=== PATIENT | male | born 1990 | race Caucasian/White ===

== ENCOUNTER 2021-08-28 21:29 | Emergency (ER) | payer OTHER ==
[2021-08-28 21:52] VITALS: BP 141/80; PULSE 86; TEMP 98.4; BMI 23.7
[2021-08-29] MEDS ORDERED: ALBUTEROL SO4 2.5/IPRATROPIUM 0.5 INH SOL 3 ML VIAL.NEB. NEB ONE ×2 (01:13→01:17)
[2021-08-29] MEDS ORDERED: DEXAMETHASONE SOD PHOSPHATE 10 MG/1 ML VIAL IM ONE (01:13)
[2021-08-29] MEDS ORDERED: DEXAMETHASONE SOD PHOSPHATE 10 MG/1 ML VIAL ONE (01:17)
== END 2021-08-29 02:30 | disposition home or self-care (01) ==
LOC: JERFT 21:29 → JER 21:29
PROC: 3E023GC Introduction of Other Therapeutic Substance into Muscle, Percutaneous Approach (ICD-10-PCS; principal; 2021-08-28)
PROC: 3E0F7GC Introduction of Other Therapeutic Substance into Respiratory Tract, Via Natural or Artificial Opening (ICD-10-PCS; 2021-08-28)
DX: J40 Bronchitis, not specified as acute or chronic (principal)
CPT/HCPCS: 0241U-QW; 71046-TC-FY; 99284-25; J1100

== ENCOUNTER 2023-12-07 21:42 | Emergency (ER) | payer SELFPAY ==
[2023-12-07 21:55] VITALS: BP 156/61; PULSE 71; RESP 18; TEMP 97.6; BMI 24.4
[2023-12-07] MEDS: ACETAMINOPHEN 1000 MG/100 ML BAG IVPB ONE (22:35)
[2023-12-07] MEDS ORDERED: ACETAMINOPHEN INJECTION 100 ML ONE (22:35)
[2023-12-07 22:54] LABS: BASO % 0.6 % (0-2.0); EOS % 2.4 % (0-4.5); HEMATOCRIT 44.5 % (35.4-49); HEMOGLOBIN 15.1 GM/dL (11.7-16.9); LYMPH % 34.7 % (8-40); MCH 29.7 pg (25.7-33.7); MCHC 33.9 g/dl (32.0-35.9); MEAN CELL VOLUME 87.7 fl (80-96); MEAN PLT VOLUME 7.9 fl (7.5-11.1); MONO % 8.2 % (3.8-10.2); NEUT % 54.1 % (42.8-82.8); PLATELET COUNT 232 10^3/uL (134-434); RBC 5.07 M/mm3 (4.00-5.60); RDW 12.8 % (11.9-15.9)
[2023-12-07 23:11] LABS: POTASSIUM 4.3 mmol/L (3.5-5.1)
[2023-12-07 23:13] LABS: ALBUMIN 4.2 g/dl (3.4-5.0); BLOOD UREA NITROGEN 17.2 mg/dL (7-18); CALCIUM 9.3 mg/dL (8.5-10.1)
[2023-12-07 23:17] LABS: BILIRUBIN,TOTAL 1.2 mg/dL (0.2-1); CREATININE 1.4 mg/dL (0.55-1.3); TOT PROT 7.6 g/dl (6.4-8.2)
== END 2023-12-08 01:15 | disposition home or self-care (01) ==
LOC: JER 21:42
DX: R07.89 Other chest pain (principal); R51.9 Headache, unspecified; M79.642 Pain in left hand; Z20.822 Contact with and (suspected) exposure to COVID-19
CPT/HCPCS: 0241U-QW; 36415; 71046-TC-FY; 80053; 84484; 85025; 93005; 93010; 99285-25; J0131